=== PATIENT | male | born 1985 | race Caucasian/White ===

== ENCOUNTER 2024-05-27 22:15 | Emergency (ER) | payer SELFPAY ==
[~2024-05-27] VITALS: Ht 180.3 cm; Wt 83.9 kg
== END 2024-05-28 04:16 | disposition home or self-care (01) ==
LOC: ED 22:15
DX: S09.8XXA Other specified injuries of head, initial encounter (principal); S19.9XXA Unspecified injury of neck, initial encounter; F10.129 Alcohol abuse with intoxication, unspecified; Z87.891 Personal history of nicotine dependence; Z79.899 Other long term (current) drug therapy; Y90.6 Blood alcohol level of 120-199 mg/100 ml; V89.2XXA Person injured in unspecified motor-vehicle accident, traffic, initial encounter; Y93.89 Activity, other specified; Y92.410 Unspecified street and highway as the place of occurrence of the external cause; Y99.9 Unspecified external cause status